=== PATIENT | female | born 1940 | race Caucasian/White ===

== ENCOUNTER → 2016-10-27 | Outpatient (CLI) | payer MEDICARE | LOC: RAD 16:01 | DX: M79.672 Pain in left foot (principal) | CPT/HCPCS: 73610; 73630 ==

== ENCOUNTER → 2016-12-06 | Outpatient (CLI) | payer MEDICARE ==
[2016-12-06 08:13] LABS: HEMOGLOBIN 13.6 gm/dl (12.3-15.3); RED BLOOD COUNT 4.49 M/UL (4.00-5.10); WHITE BLOOD COUNT 7.2 K/UL (4.5-11.0)
[2016-12-06 08:33] LABS: BUN/CREATININE RATIO 19 (0-10)
== END ==
LOC: LAB 07:33
PROVIDERS: Family Medicine
DX: I10 Essential (primary) hypertension (principal); E11.9 Type 2 diabetes mellitus without complications; E03.9 Hypothyroidism, unspecified; E78.5 Hyperlipidemia, unspecified; E55.9 Vitamin D deficiency, unspecified
CPT/HCPCS: 36415; 80048; 80061; 80076; 83036; 84443; 85025